=== PATIENT | female | born 2000 | race Two or more races ===

== ENCOUNTER 2024-10-08 16:31 | Outpatient (REF) | payer MEDICAID, SELFPAY ==
[2024-10-09 11:10] LABS: H Pylori Breath Test Negative (Negative)
== END 2024-10-08 16:32 | disposition home or self-care (01) ==
LOC: HO.HHCLNP 16:31
PROVIDERS: Visit Provider Student in an Organized Health Care Education/Training Program
DX: K29.70 Gastritis, unspecified, without bleeding (principal)
CPT/HCPCS: 83013